=== PATIENT | female | born 1935 | race Caucasian/White ===

== ENCOUNTER 2018-09-21 15:19 | Emergency (ER) | payer MEDICARE, OTHER ==
[~2018-09-21] VITALS: Ht 157.5 cm; Wt 54.4 kg
--- NOTE | 2018-09-21 15:20 | NUR ---
ED Nurse Note: Patient brought in by ambulance from home due to 2 falls today. patient reports mechanical ground fall. patient reports she has been having back pain for 2 months.
--- NOTE | 2018-09-21 15:22 | NUR ---
ED Nurse Note: patient reports she lives by herself, patient reports she hates it because her sister , she used to live her sister per patient. neighbor by the bedside
--- NOTE | 2018-09-21 15:36 | Emergency Room Report ---
History of Present Illness General Chief Complaint: Multiple Trauma/Fall Source: Patient Present Illness HPI Patient is an 82-year-old female brought in by EMS after increased generalized weakness and multiple falls. Patient reportedly had 2 falls today. Patient reports having pain to her low back. She reports of increased weakness to both lower extremities. She denies any chest discomfort. She reports having been more weak than usual. Patient normally lives alone at her apartment complex. She denies any recent fever. She denies hitting her head.She reports being followed by Dr. Mcneal. She reportedly had recently been started on a muscle relaxant after having increased back pain.She reports having some weakness to both lower extremities. Allergies: Coded Allergies: No Known Allergies (Unverified , 09/21/18) Patient History Past Medical History: see triage record Reviewed Nursing Documentation: PMH: Agreed; PSxH: Agreed Nursing Documentation-PMH Hx Hypertension: Yes Review of Systems All Other Systems: negative except mentioned in HPI Physical Exam Vital Signs Date Time Temp Pulse Resp B/P (MAP) Pulse Ox O2 Delivery O2 Flow Rate FiO2 09/21/18 15:16 98.2 88 16 160/66 (97) 98 Room Air Sp02 EP Interpretation: reviewed, normal General Appearance: normal inspection, no apparent distress, alert, GCS 15, Chronically Ill Head: atraumatic ENT: normal ENT inspection, hearing grossly normal, normal voice Neck: supple, no bony tend, limited range of motion Respiratory: normal inspection, lungs clear, normal breath sounds, no respiratory distress, no retraction, no wheezing Cardiovascular #1: regular rate, rhythm, no edema Gastrointestinal: non tender, soft, no hernia Musculoskeletal: normal inspection, decreased range of motion Neurologic: normal inspection, alert, oriented x3, responsive, motorcyles final inspector III-XII nml as tested, speech normal, motor weakness Psychiatric: normal inspection, judgement/insight normal, mood/affect normal Skin: no rash, other - multiple areas of bruising and swelling, sacral skin breakdwn Medical Decision Making Diagnostic Impression: Primary Impression: Fall Additional Impressions: Multiple injuries due to trauma Fracture of pubic ramus Sacral fracture, closed Lumbar compression fracture Fracture of transverse process of lumbar vertebra Hyponatremia ER Course Patient presented after a fall. Differential diagnosis include was not limited to fracture, contusion, electrolyte abnormality, among others. Because of complexity of patient's case laboratory testing and imaging studies were ordered. Patient was noted to have some significant weakness to her extremities. Patient appears to be somewhat chronically ill. CT imaging of the thoracic spine showed compression fracture. CT imaging of the lumbar spine showed compression fractures of L4 as well as transverse process fracture. CT of the pelvis showed sacral fracture. As well as pelvic ramus fracture. Patient was noted to have multiple electrolyte abnormalities including hyponatremia and hypokalemia. EKG interpreted by me showed normal sinus rhythm without acute ST or T wave changes. Patient was discussed with Dr. Vilchis trauma surgeon from [facility] for higher level of care transfer. Patient appears to be hemostatically stable at this time. Labs Test 09/21/18 15:35 09/21/18 17:52 White Blood Count 13.0 K/UL (4.8-10.8) Red Blood Count 4.16 M/UL (4.20-5.40) Hemoglobin 12.9 G/DL (12.0-16.0) Hematocrit 35.5 % (37.0-47.0) Mean Corpuscular Volume 85 FL (80-99) Mean Corpuscular Hemoglobin 31.0 PG (27.0-31.0) Mean Corpuscular Hemoglobin Concent 36.4 G/DL (32.0-36.0) Red Cell Distribution Width 10.8 % (11.6-14.8) Platelet Count 478 K/UL (150-450) Mean Platelet Volume 4.1 FL (6.5-10.1) Neutrophils (%) (Auto) % (45.0-75.0) Lymphocytes (%) (Auto) % (20.0-45.0) Monocytes (%) (Auto) % (1.0-10.0) Eosinophils (%) (Auto) % (0.0-3.0) Basophils (%) (Auto) % (0.0-2.0) Differential Total Cells Counted 100 Neutrophils % (Manual) 84 % (45-75) Lymphocytes % (Manual) 9 % (20-45) Monocytes % (Manual) 5 % (1-10) Eosinophils % (Manual) 0 % (0-3) Basophils % (Manual) 0 % (0-2) Band Neutrophils 2 % (0-8) Platelet Estimate Increased Platelet Morphology Normal Red Blood Cell Morphology Normal Sodium Level 127 MMOL/L (136-145) Potassium Level 2.5 MMOL/L (3.5-5.1) Chloride Level 88 MMOL/L (98-107) Carbon Dioxide Level 28 MMOL/L (21-32) Anion Gap 11 mmol/L (5-15) Blood Urea Nitrogen 61 mg/dL (7-18) Creatinine 2.0 MG/DL (0.55-1.30) Estimat Glomerular Filtration Rate mL/min (>60) Glucose Level 138 MG/DL (74-106) Calcium Level 9.1 MG/DL (8.5-10.1) Total Bilirubin 0.5 MG/DL (0.2-1.0) Aspartate Amino Transf (AST/SGOT) 34 U/L (15-37) Alanine Aminotransferase (ALT/SGPT) 25 U/L (12-78) Alkaline Phosphatase 191 U/L (46-116) Troponin I 0.377 ng/mL (0.000-0.056) Total Protein 6.7 G/DL (6.4-8.2) Albumin 3.4 G/DL (3.4-5.0) Globulin 3.3 g/dL Albumin/Globulin Ratio 1.0 (1.0-2.7) Lipase 222 U/L (73-393) Urine Color Pale yellow Urine Appearance Clear Urine pH 5 (4.5-8.0) Urine Specific [place] 1.010 (1.005-1.035) Urine Protein 2+ (NEGATIVE) Urine Glucose (UA) Negative (NEGATIVE) Urine Ketones Negative (NEGATIVE) Urine Blood 3+ (NEGATIVE) Urine Nitrite Negative (NEGATIVE) Urine Bilirubin Negative (NEGATIVE) Urine Urobilinogen Normal MG/DL (0.0-1.0) Urine Leukocyte Esterase Negative (NEGATIVE) EKG Diagnostic Results Rate: normal Rhythm: NSR ST Segments: no acute changes Last Vital Signs Date Time Temp Pulse Resp B/P (MAP) Pulse Ox O2 Delivery O2 Flow Rate FiO2 09/21/18 15:16 98.2 88 16 160/66 (97) 98 Room Air Status: improved Disposition: XFER SHT-TRM HOSP Condition: Serious Omar Goodwin MD Sep 21, 2018 15:36
--- NOTE | 2018-09-21 15:40 | NUR ---
ED Nurse Note: blood sent to lab
--- NOTE | 2018-09-21 15:42 | NUR ---
ED Nurse Note: patient went to CT scan.
[2018-09-21 16:05] LABS: HEMATOCRIT 35.5 % (37.0-47.0); HEMOGLOBIN 12.9 G/DL (12.0-16.0); MEAN CORPUSCULAR VOLUME 85 FL (80-99); PLATELET COUNT 478 K/UL (150-450); RED BLOOD COUNT 4.16 M/UL (4.20-5.40); RED CELL DISTRIBUTION WIDTH 10.8 % (11.6-14.8)
[2018-09-21 16:14] LABS: ALANINE AMINOTRANSFERASE 25 U/L (12-78); ALBUMIN 3.4 G/DL (3.4-5.0); ALKALINE PHOSPHATASE 191 U/L (46-116); ANION GAP 11 mmol/L (5-15); ASPARTATE AMINO TRANSFERASE 34 U/L (15-37); BILIRUBIN,TOTAL 0.5 MG/DL (0.2-1.0); BLOOD UREA NITROGEN 61 mg/dL (7-18); CALCIUM 9.1 MG/DL (8.5-10.1); CARBON DIOXIDE 28 MMOL/L (21-32); CHLORIDE 88 MMOL/L (98-107); SODIUM 127 MMOL/L (136-145)
[2018-09-21 16:16] LABS: POTASSIUM 2.5 MMOL/L (3.5-5.1)
[2018-09-21 16:34] VITALS: BP 138/67
--- NOTE | 2018-09-21 16:35 | NUR ---
ED Nurse Note: notified Dr. Goodwin regarding patient's skin: pressure ulcer noted on the left and right buttocks. left buttocks shows redness and black area around the skin opening right buttocks shows redness with skin opening
--- NOTE | 2018-09-21 17:04 | Diagnostic Imaging Report ---
Indication: Back pain, status post fall Technique: Spiral acquisitions obtained through the thoracic spine. No IV contrast utilized. Multiplanar reconstructions were generated. Total dose length product 365.36 mGycm. CTDIvol(s) 17.51 mGy. Dose reduction achieved using automated exposure control Comparison: none Findings: There is severe thoracic kyphosis, less severe scoliotic deformity. This limits evaluation. There is loss of height of the T10 vertebral body, with approximately 30% height loss anteriorly. No evidence of posterior retropulsion. The remaining vertebral body heights are preserved. No other evidence of acute spine fracture. There is suggestion of slight irregularity of the anterior and posterior cortex of the sternum in 2 locations. Suspect that this is due to slight motion artifact, however, as there is no overlying soft tissue contusion or underlying substernal hematoma. 9 mm diameter area of fluid attenuation occupies the left T1-2 neural foramen. A 16 x 14 mm fluid attenuation lesion extends through and out of the left C5-6 neural foramen, expanding it and scalloping the transverse process located posterior to it. Subcentimeter low-attenuation lesions are seen in the bilateral T6-7 neural foramina. Similar 9 mm diameter lesion is seen in the right T8-9 foramen and a 6 mm diameter lesion and the left T9 foramen. There is a 15 mm lesion expanding the right T10-11 neural foramen, scalloping the posterior transverse process at this level. Similar lesions are seen at T11-12, approximately 13 mm diameter on the right and 11 mm diameter on the left. No significant disc bulge or protrusion, spinal stenosis or neural foraminal stenosis. The disc spaces are largely preserved. There is a vacuum formation are consistent with early degenerative changes. The included extraspinal soft tissues are unremarkable. Minimal scarring is seen at the right lung apex. Impression: T10 vertebral body compression fracture, with approximately 20-30% height loss. Acuity indeterminate. Consider MRI for better characterization if clinically relevant Irregularity of the cortex of the sternum, as described. Probably secondary to motion artifact rather than fracture. Nonetheless, correlation with clinical findings is recommended Fairly severe thoracic kyphosis. Less severe scoliotic deformity Multiple low-attenuation lesions within the neural foramina, as detailed above. 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 However, nonemergent MRI should be considered to confirm cystic nature of such as clinically indicated The CT scanner at [facility] is accredited by the [employer] and the scans are performed using protocols designed to limit radiation exposure to as low as reasonably achievable to attain images of sufficient resolution adequate for diagnostic evaluation.
--- NOTE | 2018-09-21 17:25 | Diagnostic Imaging Report ---
Indication: Pain, status post fall, pain to low back Technique: Noncontrast spiral acquisitions obtained through the pelvis. Multiplanar reconstructions generated. Total dose length product 743.34 mGycm. CTDIvol(s) 14.11,11.2 mGy. Dose reduction achieved using automated exposure control Comparison: none Findings: There is a complex comminuted vertically oriented fracture of the right side of the sacrum. There is also a complex and comminuted minimally displaced vertically oriented fracture of the left side of the sacrum. There is some indistinctness to the some of the fracture lines on both sides. Other fracture lines appear more distinct. There is also some sclerosis of the sacrum which is somewhat diffuse. There is a central somewhat trabeculated lesion of the sacrum at S1 which may represent a hemangioma. There is also a fracture which is nondisplaced of the left L5 transverse process. There is a fracture of the right inferior pubic ramus which is slightly comminuted, displaced by slightly over one bone width. There is a comminuted fracture medial right superior pubic ramus which is comminuted, inferiorly and medially displaced. There is questionably some irregularity of the medial left pubic ramus, but this appears to be due to motion artifact. No definite hip or acetabular fracture demonstrated on either side. There is very slight soft tissue swelling of the right obturator region musculature. A small hematoma is seen in the musculature lateral to the superior pubic ramus. A tubular area with gas bubbles and calcification is seen deep to the pelvic wall musculature to the right of midline just cephalad to the pubic ramus fracture. This measures 13 x 10 x 18 mm. 2 cm fluid attenuation lesion is seen expanding the right S1 neural foramen. Similar 15 mm lesion is seen expanding the left side of the sacral spinal canal between the S1 and S2 foramina. The included pelvic viscera are remarkable for the presence of multiple right renal cysts and at least one left renal cyst. Impression: Complex multi partite fracture of the sacrum, as described above. Although there is definitely an acute component, presence of considerable sacral sclerosis and indistinctness to some of the fracture lines may indicate a subacute component. Alternatively, the sclerotic appearance could indicate infiltration by neoplasm and a pathologic fracture. Correlate with any clinical history of primary neoplasm. Displaced right superior and inferior pubic ramus fractures, as described Nondisplaced left L5 transverse process fracture Unusual tubular appearing area of calcification and gas bubbles immediately deep to the right elbow wall musculature, significance uncertain, may indicate penetrating trauma to this area. However, no superficial laceration is demonstrated. Soft tissue swelling of the right obturator region musculature and small intramuscular hematoma lateral to the superior pubic ramus 2 cm fluid attenuation lesion expanding the right S1 neural foramen and similar lesion in the sacral spinal canal between S1 and S2, consistent with multiple nerve root sleeve cysts. Incidental finding of bilateral renal cysts The CT scanner at [facility] is accredited by the [employer] and the scans are performed using protocols designed to limit radiation exposure to as low as reasonably achievable to attain images of sufficient resolution adequate for diagnostic evaluation.
--- NOTE | 2018-09-21 17:41 | Diagnostic Imaging Report ---
Indications: Back pain, status post fall Technique: Spiral acquisitions obtained through the lumbar spine. Multiplanar reconstructions were generated. No IV contrast utilized. Total dose length product 743.34 mGycm. CTDIvol(s) 14.11,11.2 mGy. Dose reduction achieved using automated exposure control Comparison: none Findings: There is a complex sacral fracture which is described in detail on a separate pelvic CT report. There is a fracture of the left L3 transverse process. This is nondisplaced. There is a slight degree of sclerosis about the fracture line, so this could be subacute rather than acute. There is inferior endplate depression of the L4 vertebral body. There is a nondisplaced acute appearing fracture of the L5 transverse process. This is actually better appreciated on the pelvic CT. No other acute fractures. The remaining vertebral body heights are preserved. The disc spaces are preserved. There is minimal vacuum formation at multiple disc levels. There is apposition of the L3-4 and L4-5 spinous processes with some resulting sclerotic change. 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 At L4-5, there is circumferential annular bulge. This does not appear to significantly compromise the spinal canal or neural foramina. At the remaining disc levels, no significant disc bulge or protrusion, spinal stenosis, or neural foraminal stenosis demonstrated. Impression: Complex sacral fracture. Please refer to separate CT pelvis report for detailed analysis of this Acute versus subacute L3 transverse process fracture on the left. Acute-appearing L5 transverse process fracture Inferior endplate depression of the L4 vertebral body, consistent with endplate compression fracture. Age indeterminate. Consider MRI to better characterize if clinically relevant L4-5 nerve root sleeve cyst expanding the left neural foramen So-called kissing spinous processes at L3-4 and L4-[address] scanner at [facility] is accredited by the [employer] and the scans are performed using protocols designed to limit radiation exposure to as low as reasonably achievable to attain images of sufficient resolution adequate for diagnostic evaluation.
--- NOTE | 2018-09-21 17:50 | NUR ---
ED Nurse Note: indwelling robins placed using sterile technique as ordered by Dr. Goodwin
[2018-09-21 18:08] LABS: APPEARANCE,URINE CLEAR; BILIRUBIN, URINE NEGATIVE (NEGATIVE); COLOR,URINE PALE YELLOW; GLUCOSE, URINE (UA) NEGATIVE (NEGATIVE); KETONES,URINE NEGATIVE (NEGATIVE); LEUKOCYTE ESTERASE ,URINE NEGATIVE (NEGATIVE); NITRITE,URINE NEGATIVE (NEGATIVE); PH,URINE 5 (4.5-8.0); PROTEIN,URINE 2+ (NEGATIVE); UROBILINOGEN,URINE NORMAL MG/DL (0.0-1.0)
[2018-09-21 18:35] VITALS: BP 138/67
[2018-09-21] MEDS ORDERED: Morphine Sulfate 2mg/ml Inj(IV/IM USE ONLY) IVP ONE (18:45)
--- NOTE | 2018-09-21 19:16 | NUR ---
HAND-OFF: Report given to Mary ARCHULETA. Patient is stable in bed. Dressings applied to left and right buttocks pressure ulcer.
[2018-09-21 19:40] VITALS: BP 155/66
--- NOTE | 2018-09-21 19:40 | NUR ---
ED Nurse Note: Patient was transfered to [facility] due to multiple fractures. Patient was transfered via [facility] ambulance by ALS protocol, with all belongings. AAO x4, VSS at this time, patient denyes any pain.
--- NOTE | 2018-09-22 16:04 | Cardiology Report ---
APPROVED REPORT EKG Measurement Heart [id number] Normal sinus rhythm Left ventricular hypertrophy with repolarization abnormality Abnormal ECG
== END 2018-09-21 19:40 | disposition short-term general hospital (02) ==
LOC: EDBD 15:19 → EDBEDREQ 15:37 → EMR 16:20 → 2E 16:22 → UNDOADMIN 16:22 → EDBEDREQSVC 17:09 → EDBEDREQ 17:09 → EMR 19:40
DX: S32.599A Other specified fracture of unspecified pubis, initial encounter for closed fracture (principal); S32.10XA Unspecified fracture of sacrum, initial encounter for closed fracture; N28.1 Cyst of kidney, acquired; S32.059A Unspecified fracture of fifth lumbar vertebra, initial encounter for closed fracture; M40.204 Unspecified kyphosis, thoracic region; E87.1 Hypo-osmolality and hyponatremia; W19.XXXA Unspecified fall, initial encounter; Y92.9 Unspecified place or not applicable; I10 Essential (primary) hypertension
CPT/HCPCS: 36415; 72128; 72131; 72192; 80053; 81003; 83690; 84484; 85007; 85025; 93005; 96374; 99285; J2270; J8499